=== PATIENT | male | born 1990 | race African-American/Black ===

== ENCOUNTER 2020-10-26 12:09 | Emergency (ER) | payer OTHER ==
[~2020-10-26] VITALS: Ht 180.3 cm; Wt 99.0 kg
[2020-10-26 13:42] VITALS: BP 130/89
== END 2020-10-26 13:43 | disposition home or self-care (01) ==
LOC: ER 12:39
DX: H10.023 Other mucopurulent conjunctivitis, bilateral (principal)
CPT/HCPCS: 99283

== ENCOUNTER 2020-11-04 11:31 | Emergency (ER) | payer OTHER ==
[~2020-11-04] VITALS: Ht 180.3 cm; Wt 75.0 kg
[2020-11-04] MEDS ORDERED: FLUORESCEIN SODIUM 1MG/STRIP BOTHEYE ONE (12:15)
[2020-11-04] MEDS ORDERED: TETRACAINE 0.5% OPHTH DROPS 4ML BOTHEYE ONE (12:15)
[2020-11-04 13:30] VITALS: BP 124/73
== END 2020-11-04 14:52 | disposition home or self-care (01) ==
LOC: ER 11:31
DX: H10.33 Unspecified acute conjunctivitis, bilateral (principal)
CPT/HCPCS: 87070; 99283